=== PATIENT | female | born 1995 | race Caucasian/White ===

== ENCOUNTER 2018-02-12 22:46 | Emergency (ER) | payer SELFPAY ==
[~2018-02-12] VITALS: Ht 167.6 cm; Wt 72.1 kg
[2018-02-12 22:48] VITALS: BP 125/84
== END 2018-02-12 23:41 | disposition home or self-care (01) ==
LOC: ED 23:26
DX: L50.8 Other urticaria (principal); J06.9 Acute upper respiratory infection, unspecified
CPT/HCPCS: 99281